=== PATIENT | female | born 1940 ===

== ENCOUNTER 2018-09-01 17:17 | Emergency (ER) | payer BC ==
--- NOTE | 2018-09-02 11:50 | UC ---
Course/Dx - Diagnoses Provider Diagnoses: Patient left without being seen Discharge - Sign-Out/Discharge Documenting (check all that apply): Post-Discharge Follow Up All imaging exams completed and their final reports reviewed: No Studies - Discharge Plan Condition: Stable Disposition: LEFT WITHOUT BEING SEEN Referrals: No Primary Care Phys,NOPCP [Primary Care Provider] - - Billing Disposition and Condition Condition: STABLE Disposition: Left Without Being Seen
== END 2018-09-01 18:20 | disposition left against medical advice (07) ==
LOC: UCEAST 17:17
DX: Z53.21 Procedure and treatment not carried out due to patient leaving prior to being seen by health care provider (principal)

== ENCOUNTER 2018-09-02 07:02 | Emergency (ER) | payer BC, MEDICARE ==
--- NOTE | 2018-09-02 07:24 | UC ---
Skin Complaint HPI - HPI Summary HPI Summary: Patient presents to urgent care with a rash has developed on her bilateral lower extremities and as well as her right upper extremity a patch on her left back. Patient states that intermittently itchy. Patient states she only just noticed it this week but is unsure how long its been there. Patient denies putting antipyretics on it. Patient denies any outside contacts. Patient states she recently changed laundry detergent. Patient states spots on her ankle on her right forearm itch. Patient denies chest pain or shortness of breath. No facial swelling. No drainage from any of the wounds. Rash is not painful Patient has not put anything on them. Patient is not on any medications. Patient is not taking herbal fluids. Patient does not have a primary care doctor. Patient's on no medications. - History of Current Complaint Chief Complaint: UCRash Stated Complaint: SKIN ISSUE Hx Obtained From: Patient ?: No Onset/Duration: Gradual Onset Skin Exposure Onset/Duration: Days Ago Onset Severity: Mild Current Severity: None Pain Intensity: 0 Pain Scale Used: 0-10 Numeric - Allergy/Home Medications Allergies/Adverse Reactions: Allergies Allergy/AdvReac Type Severity Reaction Status Date / Time No Known Allergies Allergy Verified 09/02/18 07:11 PMH/Surg Hx/FS Hx/Imm Hx Previously Healthy: Yes - Surgical History Surgical History: None - Family History Known Family History: Positive: Non-Contributory - Social History Occupation: Retired Lives: Alone Alcohol Use: Rare Substance Use Type: None Smoking Status (MU): Never Smoked Tobacco Review of Systems All Other Systems Reviewed And Are Negative: Yes Constitutional: Positive: Negative Skin: Positive: Rash Eyes: Positive: Negative ENT: Positive: Negative Respiratory: Positive: Negative Cardiovascular: Positive: Negative Gastrointestinal: Positive: Negative Genitourinary: Positive: Negative Motor: Positive: Negative Neurovascular: Positive: Negative Musculoskeletal: Positive: Negative Neurological: Positive: Negative Psychological: Positive: Negative Physical Exam - Summary Physical Exam Summary: Vital Signs Reviewed: Yes A+Ox3, no distress Eyes: Conjunctiva Clear, ROMAN. EOM intact and full ENT: Hearing grossly normal TM x 2 clear, mmoist, uvula midline, no exudate, no erythema Neck: Positive: Supple Respiratory: Positive: No respiratory distress, No accessory muscle use + CTA throughout no w/r Cardiovascular: RRR nl s1, s2 no m/r CBT <2 sec abd soft + BS nt/nd no guarding, no distension Musculoskeletal Exam: ROSALES x 4 without difficulty Strength Intact, ROM Intact Neurological: Positive: Alert, + sensation throughout Psychological: Positive: Normal Response To Family Skin: Positive: with with dry, scaly patchy like rash on right forearm, left lateral ankle, right anterior iniguez. Raise, flaky skin with appearance of psoriasis. Pt with mildly red, raised anterior left iniguez isolated lesion - itchy - hive appearance. No petechia. No drainage. No concern for cellulitis Triage Information Reviewed: Yes Vital Signs: Initial Vital Signs Temp 98.6 F 09/02/18 07:12 Pulse 92 09/02/18 07:12 Resp 16 09/02/18 07:12 BP 164/90 09/02/18 07:12 Pulse Ox 99 09/02/18 07:12 Course/Dx - Course Course Of Treatment: Patient presents with what she reports to be in acute rash. However some of this appear much more chronic. Patient on her right forearm left flank and left lateral ankle has tried mounding freaky rash skin with the appearance of psoriasis. Patient reports mild itching. No open wounds. No drainage. No tenderness. On her left anterior iniguez patient with areas that appear more consistent with hives. These are itching. He states these are relatively new. Patient didn't strike. Recharging approximately one week ago. Patient without any other complaints. Patient doesn't have a doctor. We'll prescribe patient a Medrol Dosepak to help with some the itching. Recommend strongly patient follow dermatology. Patient given contact information for [facility] in recommend she call this morning. Patient comfortable in agreement with plan. Advised patient to avoid getting overheated. Avoid NSAIDs, strict return precautions. Patient comfortable in agreement with plan. Pt's BP elevated- recommend follow with PCP - pt states ' I have one but I dont like to go" - Diagnoses Provider Diagnosis: Rash Discharge - Sign-Out/Discharge Documenting (check all that apply): Patient Departure All imaging exams completed and their final reports reviewed: No Studies - Discharge Plan Condition: Stable Disposition: HOME Prescriptions: methylPREDNISolone [Medrol Dosepak 4 MG*] 1 mg PO .SEE LAURA INSTRUCTION #1 tab Patient Education Materials: Acute Rash (ED) Referrals: Edgar Watkins MD [Medical Doctor] - Mirlande Moura MD [Medical Doctor] - No Primary Care Phys,NOPCP [Primary Care Provider] - Additional Instructions: - It is recommended you discontinue using the new detergent until you are evaluated by the drag seiner - Okay to take prednisone as prescribed for itching - contact the drag seiner today to schedule an appointment this week. If you develop facial swellling, difficulty breathing, shortness of breath or other concerns it is recommended you go to the emergency department or call 911 for further evaluation or treatment - Billing Disposition and Condition Condition: STABLE Disposition: Home
== END 2018-09-02 07:48 | disposition home or self-care (01) ==
LOC: UCEAST 07:02
DX: R21 Rash and other nonspecific skin eruption (principal); R03.0 Elevated blood-pressure reading, without diagnosis of hypertension
CPT/HCPCS: 99212; G0463